=== PATIENT | male | born 1975 | race African-American/Black ===

== ENCOUNTER 2024-05-28 10:12 | Inpatient (IN) | payer OTHER ==
[2024-05-28] MEDS ORDERED: BENZOCAINE/MENTHOL (CHLORASEPTIC ) LOZENGE MM PRN (10:59)
[2024-05-28] MEDS ORDERED: ACETAMINOPHEN 325 MG TABLET (FP) PO PRN (10:59)
[2024-05-28] MEDS ORDERED: ONDANSETRON *ODT* 4 MG TABLET SL PRN (10:59)
[2024-05-28] MEDS ORDERED: NALOXONE (NARCAN) HCL 4 MG/0.1 ML SPRAY NS PRN (10:59)
[2024-05-28] MEDS ORDERED: DICYCLOMINE HCL 10 MG CAPSULE PO PRN (10:59)
[2024-05-28] MEDS ORDERED: guaiFENesin 600 MG TABLET.ER (FP) PO PRN (10:59)
[2024-05-28] MEDS ORDERED: MAG HYDROX/AL HYDROX/SIMETH 30 ML UNIT-DOSE CUP PO PRN (10:59)
[2024-05-28] MEDS ORDERED: IBUPROFEN 600 MG TABLET (FP) PO PRN (10:59)
[2024-05-28] MEDS ORDERED: IBUPROFEN 400 MG TABLET (FP) PO PRN (10:59)
[2024-05-28] MEDS ORDERED: LOPERAMIDE HCL 2 MG CAPSULE PO PRN (10:59)
[2024-05-28] MEDS ORDERED: BISMUTH SUBSALICYLATE 524 MG/30 ML PO PRN (10:59)
[2024-05-28] MEDS ORDERED: MAGNESIUM HYDROX 2400MG/30ML ORAL SUSPENSION 30 ML CUP PO PRN (10:59)
[2024-05-28] MEDS ORDERED: NICOTINE POLACRILEX 2 MG GUM BUC PRN (10:59)
[2024-05-28] MEDS ORDERED: BENZONATATE 200 MG CAPSULE PO PRN (10:59)
[2024-05-28] MEDS ORDERED: POLYETHYLENE GLYCOL (HEALTHYLAX) 3350 17 GM PACKET PO PRN (10:59)
[2024-05-28 12:41] VITALS: BMI 17.6
[2024-05-28 15:30] LABS: HIV INTERPRETATION NEGATIVE (NEGATIVE)
[2024-05-28 15:31] LABS: HCV DIAGNOSTIC IN-HOUSE W/RFLX NON-REACTIVE (NONREACTIVE)
[2024-05-28] MEDS: MELATONIN 5 MG TABLETS PO SCH (22:17)
[2024-05-28] MEDS: THIAMINE 100 MG TABLET PO SCH (22:17)
[2024-05-29] MEDS: PRENATAL VITAMINS W/ FOLIC ACID TABLET (FP) PO SCH (10:09)
[2024-05-29 12:26] LABS: HEMATOCRIT 43.3 % (40.1-51.0); HEMOGLOBIN 13.4 g/dL (13.7-17.5); MCHC 30.9 g/dl (32.3-36.5); MEAN CELL VOLUME 94.1 fl (79.0-92.2); MEAN PLT VOLUME 12.3 fl (9.4-12.4); PLATELET COUNT 211 x10^3/uL (163-337); RDW 13.2 % (12.1-15.9)
[2024-05-29 12:28] LABS: POTASSIUM 3.8 mmol/L (3.5-5.1)
[2024-05-29 12:38] LABS: BILIRUBIN,TOTAL 0.3 mg/dL (0.2-1); TOT PROT 7.2 g/dl (6.4-8.2)
[2024-05-29 12:49] LABS: ALBUMIN 3.7 g/dl (3.4-5.0); CALCIUM 8.8 mg/dL (8.5-10.1)
[2024-05-29 12:50] LABS: BLOOD UREA NITROGEN 19.8 mg/dL (7-18)
[2024-05-29 12:52] LABS: CREATININE 1.2 mg/dL (0.55-1.3)
[2024-05-30] MEDS: hydrOXYzine PAMOATE 25 MG CAPSULE (FP) PO PRN (01:40)
[2024-05-30] MEDS: METHOCARBAMOL 500 MG TABLET PO PRN (01:41)
[2024-05-30] MEDS: MELATONIN 5 MG TABLETS PO ONE (02:56)
[2024-05-30 09:54] VITALS: BP 121/63; PULSE 85; RESP 17; TEMP 97.3
== END 2024-05-30 10:56 | disposition other institution (70) | DRG 774 ==
LOC: YASAS 10:12 → Y3N 12:01
PROVIDERS: ADMIT Allergy & Immunology; ATTEND Allergy & Immunology
PROC: HZ2ZZZZ Detoxification Services for Substance Abuse Treatment (ICD-10-PCS; principal; 2024-05-28)
DX: F10.20 Alcohol dependence, uncomplicated (principal); F14.20 Cocaine dependence, uncomplicated; F17.210 Nicotine dependence, cigarettes, uncomplicated; F19.24 Other psychoactive substance dependence with psychoactive substance-induced mood disorder; Z59.00 Homelessness unspecified; Z56.0 Unemployment, unspecified
CPT/HCPCS: 36415; 80053; 80305; 80307; 85027; 86780; 86803; 87389; 87811; 93005; 93010